=== PATIENT | female | born 1945 | race Caucasian/White ===

== ENCOUNTER 2016-06-10 06:52 | Inpatient (IN) | payer OTHER ==
[~2016-06-10] VITALS: Ht 157.5 cm; Wt 87.0 kg
[~2016-06-10 06:52] MED LIST: BACTRIM,SEPT1 TABLET PO; BACTROBAN NASAL1 G1 BOTH NARES; Celebrex PO; GARCINIA CAMBO1 EACH PO; HYDROCHLOROTHIA50 MG PO; IRON325 M1 PO; LEVOTHYROXINE100 MCG PO; LO-DOSE ASPIRIN81 M1 PO; LYRICA25 MG PO; MARTINIC1 EACH PO; MELOXICAM15 MG PO; MULTIVITAMIN1 EAC2 PO; NEURONTIN300 MG PO; TRAMADOL HCL50 MG PO; TYLENOL PM1 CAPLET PO; VALTREX50 MG/ML PO; VITAMIN B650 MG PO; VITAMIN C100 MG PO; VITAMIN C250 MG PO; ZESTRIL10 MG PO
[2016-06-10 08:09] VITALS: BP 126/58
[2016-06-10 15:00] VITALS: BP 116/72
[2016-06-10 21:05] VITALS: BP 129/56
[2016-06-10 23:03] VITALS: BP 145/65
[2016-06-11 07:13] LABS: ANION GAP 8 MEQ/L (2-14); CHLORIDE 101 MEQ/L (99-109); GFR ESTIMATE (CALCULATED) > 59 mL/min/; GLUCOSE 115 mg/dL (70-99); POTASSIUM 3.6 MEQ/L (3.7-5.4); SAMPLE HEMOLYSIS CHECK 0; SAMPLE ICTERIC CHECK 0; SAMPLE LIPEMIA CHECK 0; SODIUM 139 MEQ/L (136-147); UREA NITROGEN (BUN) 13 mg/dL (9-23)
[2016-06-11 07:56] LABS: HEMATOCRIT 33.3 % (36.0-46.0); MCV 91.5 FL (83-99)
[2016-06-11 09:09] VITALS: BP 155/71
[2016-06-12 00:34] VITALS: BP 140/68
[2016-06-12 07:46] VITALS: BP 184/77
[2016-06-12 08:48] LABS: HEMATOCRIT 36.2 % (36.0-46.0)
[2016-06-12] MEDS ORDERED: OXYCODONE HCL5 MG PO (10:31)
[2016-06-12] MEDS ORDERED: XARELTO10 MG PO (10:31)
[2016-06-12] MEDS ORDERED: DOCUSATE SODIU100 MG PO (10:31)
[2016-06-12] MEDS ORDERED: LIDOCAINE700 MG TD (10:31)
[2016-06-12 10:39] LABS: ANION GAP 12 MEQ/L (2-14); CHLORIDE 98 MEQ/L (99-109); GFR ESTIMATE (CALCULATED) > 59 mL/min/; GLUCOSE 117 mg/dL (70-99); POTASSIUM 3.9 MEQ/L (3.7-5.4); SAMPLE HEMOLYSIS CHECK 0; SAMPLE ICTERIC CHECK 0; SAMPLE LIPEMIA CHECK 0; SODIUM 141 MEQ/L (136-147); UREA NITROGEN (BUN) 6 mg/dL (9-23)
[2016-06-12 16:26] VITALS: BP 149/66
[2016-06-12 23:47] VITALS: BP 142/58
[2016-06-13 07:45] VITALS: BP 144/68
[2016-06-13] MEDS ORDERED: ONDANSETRON ODT4 MG PO (09:56)
== END 2016-06-13 12:44 | disposition home health service (06) | DRG 470 ==
LOC: 2SOUTH 06:52 → 3EAST 06:52 → SDC 12:44 → EDSTATUS 13:07 → 2SOUTH 13:09 → 3EAST 13:38 → 2SOUTH 13:44 → 3EAST 14:59
PROVIDERS: Orthopaedic Surgery; Physician Assistant
PROC: 0SRC0J9 Replacement of Right Knee Joint with Synthetic Substitute, Cemented, Open Approach (ICD-10-PCS; principal; 2016-06-10)
DX: M17.11 Unilateral primary osteoarthritis, right knee (principal); E87.6 Hypokalemia; I10 Essential (primary) hypertension; E03.9 Hypothyroidism, unspecified; Z86.14 Personal history of Methicillin resistant Staphylococcus aureus infection
CPT/HCPCS: 80048; 85014; 85018; C1713; J0690; J1885; J2250; J2405; J3010; J3370; J7050; J7120; L1820; S0020

== ENCOUNTER 2016-12-01 22:10 | Inpatient (IN) | payer OTHER ==
[~2016-12-01] VITALS: Ht 160 cm; Wt 87.5 kg
[~2016-12-01 22:10] MED LIST changes: +DOCUSATE SODIU100 MG PO; +LIDOCAINE700 MG TD; +ONDANSETRON ODT4 MG PO; +OXYCODONE HCL5 MG PO; +XARELTO10 MG PO
[2016-12-02 06:16] VITALS: BP 172/67
[2016-12-02 10:42] VITALS: BP 98/52
[2016-12-02 12:30] VITALS: BP 124/58
[2016-12-02 15:06] VITALS: BP 123/54
[2016-12-02 17:34] VITALS: BP 131/60
[2016-12-02 19:31] VITALS: BP 119/56
[2016-12-03 00:11] VITALS: BP 113/52
[2016-12-03 04:14] VITALS: BP 118/54
[2016-12-03 05:30] LABS: HEMATOCRIT 28.2 % (36.0-46.0); MCV 92.5 FL (83-99)
[2016-12-03 08:07] VITALS: BP 116/44
[2016-12-03 11:34] VITALS: BP 107/53
[2016-12-03 15:33] VITALS: BP 141/61
[2016-12-03 19:34] VITALS: BP 178/73
[2016-12-04 00:12] VITALS: BP 177/74
[2016-12-04 04:09] VITALS: BP 173/72
[2016-12-04 07:01] LABS: MCV 92.9 FL (83-99)
[2016-12-04 07:20] LABS: ANION GAP 7 MEQ/L (2-14); CHLORIDE 100 MEQ/L (99-109); POTASSIUM 4.1 MEQ/L (3.7-5.4); SAMPLE HEMOLYSIS CHECK 0; SAMPLE ICTERIC CHECK 0; SAMPLE LIPEMIA CHECK 0; SODIUM 138 MEQ/L (136-147); TOTAL BILIRUBIN 0.3 MG/DL (0.0-1.0)
[2016-12-04 07:26] LABS: ALKALINE PHOSPHATASE 80 IU/L (3-129); GFR ESTIMATE (CALCULATED) > 59 mL/min/; GLUCOSE 105 mg/dL (70-99); UREA NITROGEN (BUN) 14 mg/dL (9-23)
[2016-12-04 08:12] VITALS: BP 160/67
[2016-12-04] MEDS ORDERED: OXYCONTIN10 MG PO (08:39)
[2016-12-04] MEDS ORDERED: OXYCODONE HCL5 MG PO (08:39)
[2016-12-04] MEDS ORDERED: ELIQUIS2.5 MG PO (08:39)
[2016-12-04] MEDS ORDERED: DOCUSATE SODIU100 MG PO (08:39)
[2016-12-04 12:07] VITALS: BP 139/62
== END 2016-12-04 14:14 | DRG 470 ==
LOC: ENRESERV 22:10 → 2SOUTH 12-02 05:19 → 3WEST 12-02 10:18 → 2SOUTH 12-02 10:49 → 3WEST 12-04 14:14
PROVIDERS: Physician Assistant
PROC: 0SRD0J9 Replacement of Left Knee Joint with Synthetic Substitute, Cemented, Open Approach (ICD-10-PCS; principal; 2016-12-02)
DX: M17.12 Unilateral primary osteoarthritis, left knee (principal); D62 Acute posthemorrhagic anemia; M21.062 Valgus deformity, not elsewhere classified, left knee; I10 Essential (primary) hypertension; E03.9 Hypothyroidism, unspecified; Z22.322 Carrier or suspected carrier of Methicillin resistant Staphylococcus aureus
CPT/HCPCS: 80053; 85014; 85018; C1713; J0131; J0690; J1100; J1885; J2250; J2405; J3370; J7050; J7120; L1820; S0020